=== PATIENT | male | born 1965 | race African-American/Black ===

== ENCOUNTER 2024-05-19 00:06 | Emergency (ER) | payer OTHER, SELFPAY ==
[2024-05-19 00:08] VITALS: BP 134/90
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
[2024-05-19] MEDS: MOTRIN 600 MG PO (00:56)
== END 2024-05-19 01:30 | disposition home or self-care (01) ==
LOC: EMR 00:06
PROVIDERS: EMERGENCY PHYSICIAN Student in an Organized Health Care Education/Training Program; FAMILY PHYSICIAN Internal Medicine
DX: S52.571A Other intraarticular fracture of lower end of right radius, initial encounter for closed fracture (principal); X58.XXXA Exposure to other specified factors, initial encounter; E78.00 Pure hypercholesterolemia, unspecified; K21.9 Gastro-esophageal reflux disease without esophagitis; Z87.891 Personal history of nicotine dependence
CPT/HCPCS: 99283; 29125; 73110